=== PATIENT | female | born 1990 | race African-American/Black ===

== ENCOUNTER 2018-06-23 11:24 | Emergency (ER) | payer MEDICAID ==
[~2018-06-23] VITALS: Ht 160 cm; Wt 79.0 kg
[~2018-06-23 11:24] MED LIST: LEVA0.6320
[2018-06-23] MEDS ORDERED: IBUPROFEN 800MG TABLET PO ONE (14:15)
[2018-06-23 14:20] VITALS: BP 125/72
== END 2018-06-23 18:34 | disposition home or self-care (01) ==
LOC: ER 11:24
DX: J40 Bronchitis, not specified as acute or chronic (principal); R05 Cough; Z98.890 Other specified postprocedural states
CPT/HCPCS: 71101; 81025; 99283